=== PATIENT | male | born 1990 | race Caucasian/White ===

== ENCOUNTER 2020-06-09 12:53 | Emergency (ER) | payer OTHER, SELFPAY ==
--- NOTE | 2020-06-09 | ECG_ITS ---
Test Reason : CHEST DISCOMFORT Blood Pressure : / mmHG Vent. Rate : 058 BPM Atrial Rate : 058 BPM P-R Int : 138 ms QRS Dur : 072 ms QT Int : 434 ms P-R-T Axes : 057 027 039 degrees QTc Int : 426 ms Sinus bradycardia Otherwise normal ECG No previous ECGs available Referred By: Oliverio Arriaga Electronically Signed By:DORA WEBSTER
--- NOTE | 2020-06-09 12:23 | XR_ITS ---
EXAMINATION: XR CHEST CLINICAL INFORMATION: Chest pressure COMPARISON: None TECHNIQUE: 2 views of the chest were obtained. FINDINGS: The cardiac and mediastinal contours are normal. The lungs are clear. There is no pleural effusion or pneumothorax. There is curvature of the midthoracic spine to the right. IMPRESSION: No evidence for acute disease in the chest.
[2020-06-09 13:28] VITALS: BP 145/76; PULSE 55; RESP 14; TEMP 36.9; O2SAT 97; BMI 32.9
--- NOTE | 2020-06-09 13:43 | ED_ITS ---
HPI - Chest Pain General Chief Complaint: Chest Pain Stated Complaint: chest pain Time Seen by Provider: 06/09/20 13:40 Source: patient Mode of arrival: ambulatory Limitations: no limitations History of Present Illness HPI narrative: 29-year-old male with history of asthma who is a current most a smoker presenting today with complaint of left-sided chest wall pain that has been going on for the past 30 days or so. States he informed his primary care doctor, Dr. Segovia, about his symptoms and was evaluated had a EKG in office done yesterday that was normal and he had a scheduled chest x-ray that he had done today while he was in the Radiology Department he states he felt like he needed to get checked out more so he walked over after getting his x-ray done. States pain has been present and worse on the left side. Pain exacerbated by certain movements and alleviated by rest. MD complaint: chest pain Onset (ago): month(s) (1 months ) Prior episodes: Yes Pain location: left chest Pain radiation: none Severity: mild Quality: aching Relieving factors: rest Exacerbating factors: movement Treatment prior to arrival: other ( saw his primary care doctor who had EKG done and chest x-ray done outpatient today.) Risk Factors Coronary artery disease risk factors: none Thoracic aortic dissection risk factors: none Related Data Allergies Allergy/AdvReac Type Severity Reaction Status Date / Time No Known Allergies Allergy Verified 06/09/20 13:40 Review of Systems Review of Systems: Constitutional: No Weight loss, No Fever, No Chills, No Night Sweats, No Fatigue, No Malaise ENT/Mouth: No Hearing loss, No Ear Pain, No Nasal Congestion, No Sinus Pain, No Hoarseness, No sore throat, No Rhinorrhea, No Swallowing Difficulty Eyes: No Eye Pain, No Swelling, No Redness, No Foreign Body, No Discharge, No Vision Changes Cardiovascular: + Chest Pain, No SOB, No Dyspnea on Exertion, No Orthopnea, No Edema, No Palpitations Respiratory: No Cough, No Sputum, No Wheezing, No Smoke Exposure, No Dyspnea Gastrointestinal: No Nausea, No Vomiting, No Diarrhea, No Constipation, No abdominal Pain, No Hematochezia, No Melena Genitourinary: no irregular bleeding, No Dysuria, No Urinary Frequency, No Hematuria, No Urinary Incontinence, No Urgency, No Flank Pain, No Urinary Flow Changes, No Hesitancy Musculoskeletal: No joint pain, No Myalgias, No Joint Swelling Skin: No Skin Lesions, No rash Neuro: No Weakness, No Numbness, No Paresthesias, No Loss of Consciousness, No Dizziness, No Headache Psych: No Anxiety/Panic, No Depression, No SI/HI/AH/VH, No Social Issues, Heme/Lymph: No Bruising, No Bleeding,No Lymphadenopathy Endocrine: No Polyuria, No Polydipsia, No Temperature Intolerance [facility] Past Medical History Attestation statement: The following information was validated with the patient. Medical History (Updated 06/09/20 @ 16:20 by Oliverio Arriaga NP) Asthma Social History Social History Smoking Status: Never smoker Use of substances other than those prescribed or required for medical reasons: No Advance Directives: No Advance Directives Information Provided: No Physical Exam Vital Signs and I&O and Narrative: Vital Signs and I&O: Vital Signs Temp 98.5 F 06/09/20 13:28 Pulse 71 06/09/20 14:04 Resp 16 06/09/20 14:19 BP 127/75 06/09/20 14:04 Pulse Ox 97 06/09/20 13:28 Intake & Output 06/08/20 06/09/20 06/09/20 18:59 06:59 18:59 Weight 89.811 kg Body Mass Index 32.9 Const: General: cooperative and healthy appearing; No acute distress or intoxicated appearing Nutritional Appearance: average body habitus Orientation/consciousness: patient oriented x3 HENMT: Head: Yes normal to inspection Ears: hearing grossly normal bilaterally Eyes: General: appearance normal, both eyes and all related structures Visual Chaudhary: normal visual chaudhary by confrontation Neck: Neck: Yes normal visual inspection Thyroid: Thyroid normal Chest: Chest palpation & inspection: normal inspection of the chest and tenderness (left side Mild tender palpation / reproducable pain at the pectoralis) Resp: Effort & Inspection: normal respiratory effort Cardio: Jugular venous distension: no JVD GI: Inspection: Yes normal to inspection Percussion: Yes normal to percussion Auscultation: normal bowel sounds : General: Yes no CVA tenderness Back/Spine/Pelvis: Back: no CVA tenderness Skin: General skin exam: no rashes or lesions noted Neuro: General: patient oriented x3 Extrem: General: Yes normal to inspection Course Course Course Narrative: x-ray done outpatient just prior to arrival to ED from Radiology Department showed no acute disease. AP and exam consistent with pain in musculoskeletal in etiology patient does not have any risk factors but requesting further evaluation of this pain will go ahead and check labs including cardiac enzymes and EKG. No cardiac/ DVT/PE risk factors. Reevaluation(s) Reevaluation #1: states he has to leave cannot wait for troponin results. Labs otherwise reviewed including EKG and chest x-ray. Requesting a call at [phone] [facility] - Chest Pain MDM Narrative Medical decision making narrative: perc score negative, heart score 0. Differential Diagnosis Differential diagnosis: Likely atypical chest pain, costochondritis and chest pain; Unlikely fracture of rib, pneumothorax, stable angina, unstable angina pectoris, st elevation myocardial infarction and biliary colic Lab Data Attestation: I reviewed the patient's lab results. Result diagrams: 06/09/20 14:13 06/09/20 14:13 Labs: Lab Results 06/09/20 06/09/20 06/09/20 Range/Units 14:13 14:13 14:13 WBC 8.5 (4.8-10.8) X10*3/uL RBC 4.59 L (4.60-5.80) X10*6/uL Hgb 13.9 L (14.0-18.0) g/dl Hct 40.8 L (42-52) % MCV 88.9 (80-98) fL MCH 30.3 (27.0-33.0) pg MCHC 34.1 (31.0-36.0) g/dl RDW 12.6 (11.0-16.0) % Plt Count 301 (160-400) X10*3/uL MPV 8.3 L (9.4-12.4) fL Immature Gran % (Auto) 0.2 (0.0-0.4) % Neut % (Auto) 80.1 H (45-73) % Lymph % (Auto) 13.0 L (20-40) % [place] % (Auto) 5.3 (2-11) % Eos % (Auto) 0.8 (0-4) % Baso % (Auto) 0.6 (0-2) % Neut # (Auto) 6.8 (2.0-8.3) X10*3/uL Lymph # (Auto) 1.1 L (1.2-4.9) X10*3/uL [place] # (Auto) 0.5 (0.1-1.2) X10*3/uL Eos # (Auto) 0.1 (0.0-0.4) X10*3/uL Baso # (Auto) 0.1 (0.0-0.2) X10*3/uL Abs Immat Gran (auto) 0.02 (0.00-0.03) X10*3/uL Absolute Nucleated RBC 0.000 (0.0-0.012) X10*3/uL Nucleated RBC % (auto) 0.0 (0.0-0.2) /100WBC Sodium 138 (135-145) mmol/L Potassium 4.8 (3.3-5.1) mmol/l Chloride 103 (96-108) mmol/L Carbon Dioxide 27 (22-29) mmol/L Anion Gap 13 (12-20) BUN 11 (9-16) mg/dL Creatinine 0.97 (0.5-1.4) mg/dL Estim Creat Clear Calc 115.7 Estimated GFR > 60 Random Glucose 123 H (60-115) mg/dL Calcium 9.7 (8.4-10.2) mg/dL Total Bilirubin 0.5 (0.0-1.0) mg/dL Direct Bilirubin 0.2 (0.0-0.5) mg/dL AST 34 (5-37) U/L ALT 93 H (0-40) U/L Alkaline Phosphatase 70 (39-117) U/L Troponin I High Sens < 3.5 (<3.5-35.0) ng/L Total Protein 7.3 (6.5-8.0) g/dL Albumin 4.5 (3.5-5.0) g/dL Imaging Data Chest x-ray: Radiologist's impression: [address] [address] XRay Report Signed Patient: Alon Mei#: [id number] : 1990Acct:[id number] Age/Sex: 29 / MADM Date: 06/09/20 Loc: .ED Attending Dr: Lazarus Segovia MD Ordering Physician: DENYS SEGOVIA MD Date of Service: 06/09/20 Procedure(s): XR chest 2V Accession Number(s): [id number] cc: ~ EXAMINATION: XR CHEST CLINICAL INFORMATION: Chest pressure COMPARISON: None TECHNIQUE: 2 views of the chest were obtained. FINDINGS: The cardiac and mediastinal contours are normal. The lungs are clear. There is no pleural effusion or pneumothorax. There is curvature of the midthoracic spine to the right. IMPRESSION: No evidence for acute disease in the chest. Dictated By:KENDRICK RICE MD Signed By:<Electronically signed by KENDRICK RICE MD in OV>06/09/20 1304 DD/ 1223 TD/TT: Community Educator: CONNIE ECG Data ECG #1: ECG interpretation date: 06/09/20 Prior ECG tracings: not available for review Interpretation: sinus Greg, rate 58, no ST changes /elevation. Discharge Plan Discharge Clinical Impression: Costalchondritis Patient Disposition: Elopement Instructions: Costochondritis (ED) Referrals: Lazarus Segovia MD [Primary Care Provider] - 06/09/20 4:21 pm Discharge Date/Time: 06/09/20 16:04
[2020-06-09 14:04] VITALS: BP 127/75; PULSE 71; RESP 15
[2020-06-09 14:19] VITALS: RESP 16
[2020-06-09 14:22] LABS: MANUAL DIFF FLAG NO
[2020-06-09 14:27] LABS: Basophils Absolute Auto 0.1 X10*3/uL (0.0-0.2); Basophils Percent Auto 0.6 % (0-2); Eosinophils Absolute Auto 0.1 X10*3/uL (0.0-0.4); Eosinophils Percent Auto 0.8 % (0-4); Hematocrit 40.8 % (42-52); Hemoglobin 13.9 g/dl (14.0-18.0); Imm Gran Abs Auto 0.02 X10*3/uL (0.00-0.03); Imm Gran Pct Auto 0.2 % (0.0-0.4); Lymphocytes Absolute Auto 1.1 X10*3/uL (1.2-4.9); Mean Corpuscular HGB Conc 34.1 g/dl (31.0-36.0); Mean Corpuscular Hemoglobin 30.3 pg (27.0-33.0); Mean Corpuscular Volume 88.9 fL (80-98); Mean Platelet Volume 8.3 fL (9.4-12.4); Monocytes Absolute Auto 0.5 X10*3/uL (0.1-1.2); Monocytes Percent Auto 5.3 % (2-11); Neutrophils Absolute Auto 6.8 X10*3/uL (2.0-8.3); Neutrophils Percent Auto 80.1 % (45-73); Platelet Count 301 X10*3/uL (160-400); Red Blood Count 4.59 X10*6/uL (4.60-5.80); Red Cell Distribution Width 12.6 % (11.0-16.0); White Blood Count 8.5 X10*3/uL (4.8-10.8)
[2020-06-09 14:48] LABS: Alanine Aminotransferase 93 U/L (0-40); Albumin Level 4.5 g/dL (3.5-5.0); Alkaline Phosphatase 70 U/L (39-117); Anion Gap 13 (12-20); Aspartate Amino Transferase 34 U/L (5-37); Bilirubin Direct 0.2 mg/dL (0.0-0.5); Bilirubin Total 0.5 mg/dL (0.0-1.0); Blood Urea Nitrogen 11 mg/dL (9-16); Calcium 9.7 mg/dL (8.4-10.2); Carbon Dioxide 27 mmol/L (22-29); Chloride 103 mmol/L (96-108); Creatinine Clr Calc Pharmacy 115.7; Estimated Glomerular Filt Rate > 60; Glucose Random 123 mg/dL (60-115); Potassium 4.8 mmol/l (3.3-5.1); Sodium 138 mmol/L (135-145); Total Protein 7.3 g/dL (6.5-8.0)
[2020-06-09 16:06] LABS: Troponin-I High Sensitivity < 3.5 ng/L (<3.5-35.0)
== END 2020-06-09 16:04 | disposition home or self-care (01) ==
LOC: HO.ED 12:53
PROVIDERS: Nurse Practitioner Primary Care; Emergency Provider Emergency Medicine; PCP Internal Medicine; Visit Provider Internal Medicine
DX: M94.0 Chondrocostal junction syndrome [Tietze] (principal); J45.909 Unspecified asthma, uncomplicated; F17.200 Nicotine dependence, unspecified, uncomplicated
CPT/HCPCS: 36415; 71046; 80048; 80076; 84484; 85025; 93005; 93010; 99283; 99284

== ENCOUNTER → 2020-07-26 14:23 | Outpatient (BNVA) | payer OTHER, SELFPAY | PROVIDERS: PCP Internal Medicine; Visit Provider Internal Medicine | DX: R07.89 Other chest pain (principal); F17.210 Nicotine dependence, cigarettes, uncomplicated; F11.20 Opioid dependence, uncomplicated | CPT/HCPCS: 99202 ==

== ENCOUNTER 2023-01-09 15:15 | Outpatient (REF) | payer OTHER, SELFPAY ==
[2023-01-09 15:37] LABS: MANUAL DIFF FLAG NO
[2023-01-09 15:56] LABS: Basophils Absolute Auto 0.1 X10*3/uL (0.0-0.2); Basophils Percent Auto 0.5 % (0-2); Eosinophils Absolute Auto 0.2 X10*3/uL (0.0-0.4); Eosinophils Percent Auto 1.6 % (0-4); Hematocrit 42.2 % (42.0-52.0); Hemoglobin 14.3 g/dl (14.0-18.0); Imm Gran Abs Auto 0.04 X10*3/uL (0.00-0.03); Imm Gran Pct Auto 0.4 % (0.0-0.4); Lymphocytes Absolute Auto 2.9 X10*3/uL (1.2-4.9); Lymphocytes Percent Auto 26.8 % (20-40); Mean Corpuscular HGB Conc 33.9 g/dl (31.0-36.0); Mean Corpuscular Hemoglobin 30.6 pg (27.0-33.0); Mean Corpuscular Volume 90.2 fL (80.0-98.0); Mean Platelet Volume 8.9 fL (9.4-12.4); Monocytes Absolute Auto 0.8 X10*3/uL (0.1-1.2); Monocytes Percent Auto 7.8 % (2-11); Neutrophils Absolute Auto 6.8 x10*3/uL (2.0-8.3); Neutrophils Percent Auto 62.9 % (45-73); Platelet Count 330 X10*3/uL (160-400); Red Blood Count 4.68 X10*6/uL (4.60-5.80); Red Cell Distribution Width 12.9 % (11.0-16.0); White Blood Count 10.8 X10*3/uL (4.8-10.8)
[2023-01-09 16:08] LABS: Appearance Urine Cloudy; Color Urine Yellow; Glucose Urine UA Negative (Negative); Leukocyte Esterase Urine Negative (Negative); Nitrite Urine Negative (Negative); Specific Gravity - Urine >= 1.030 (1.005-1.025); Urine Blood Negative (Negative); Urine Ketones Negative (Negative); Urine Protein Trace mg/dL (Neg-Trace)
[2023-01-09 16:09] LABS: Estimated Average Glucose 114 mg/dL; Hemoglobin A1c % 5.6 %
[2023-01-09 16:44] LABS: Alanine Aminotransferase 112 U/L (0-40); Albumin Level 4.4 g/dL (3.5-5.0); Alkaline Phosphatase 71 U/L (39-117); Anion Gap 12 (12-20); Aspartate Amino Transferase 39 U/L (5-37); Bilirubin Total 0.4 mg/dL (0.0-1.0); Blood Urea Nitrogen 14 mg/dL (9-16); C Reactive Protein 0.84 mg/dL (< or = 0.50); Calcium 9.9 mg/dL (8.4-10.2); Carbon Dioxide 29 mmol/L (22-29); Chloride 105 mmol/L (96-108); Cholesterol 201 mg/dL; Estimated Glomerular Filt Rate > 60; Glucose Random 100 mg/dL (60-115); HDL Cholesterol 36 mg/dL; LDL Cholesterol Calculated 118 mg/dl; Potassium 4.3 mmol/L (3.3-5.1); Sodium 142 mmol/L (135-145); Total Protein 7.2 g/dL (6.5-8.0); Triglycerides 235 mg/dL
[2023-01-09 16:45] LABS: Creatinine Urine 268.17 mg/dL; Microalbum/Creatinine Ratio Ur 6.7 ug/mg cr
== END 2023-01-09 15:16 | disposition home or self-care (01) ==
LOC: HO.LAB 15:15
PROVIDERS: PCP Internal Medicine; Visit Provider Internal Medicine
DX: M54.2 Cervicalgia (principal); R07.9 Chest pain, unspecified; K21.9 Gastro-esophageal reflux disease without esophagitis; Z83.3 Family history of diabetes mellitus
CPT/HCPCS: 36415; 80053; 80061; 81003; 82043; 82550; 83036; 85025; 86140

== ENCOUNTER 2023-04-03 14:02 | Outpatient (AMB) | payer OTHER, SELFPAY ==
--- NOTE | 2023-04-03 14:05 | MHC.OFFVIS ---
Intake Vital Signs 04/03/23 14:06 Height 5 ft 5 in Weight 211 lb 10.3 oz BMI 35.2 BP 138/84 Blood Pressure Location Lt brachial Position Sitting Pulse 75 Pulse Source Pulse Oximeter Intake Visit Reasons: NPV/Croke/Chest pain Intake Note: New patient visit for evaluation of chest pain. Nut Cracker Required: No Accompanied by: Self / Same As Patient Allergies No Known Allergies Allergy (Verified 04/03/23 14:07) Medication List - Last Reconciled 04/03/23 by Agustín Ramos MD albuterol sulfate 90 mcg/actuation (ProAir HFA) 2 puffs inhalation Q6H PRN methadone 34 mg PO DAILY peak flow meter As directed quetiapine 100 mg PO BEDTIME HPI HPI Comments History of Present Illness Details Data was referred here for retrosternal chest discomfort. 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 Patient is a vague historian. He says since slightly before the COVID he had respiratory illness with lot of cough and mucus production and since then he has been getting inframammary discomfort radiating into the retrosternal area. Describes this as a tightness/occasionally sharp pain. Her disc comfort is almost constantly present. There is no clear relation to exertion. Symptoms then radiates up to the neck into the jaw and into the back of the neck. Symptoms are sometimes worse when he is raising his left shoulder. He has been worked up from pulmonary perspective and has been told that his lungs are clear. He is however currently on ProAir inhalers. He currently smokes and is trying to quit. Denies any other issues. [facility] Medical History Asthma Asthma Feeling of chest tightness Smoker Surgical History No pertinent past surgical history Family History Mother Drug overdoses Asthma Father Emphysema lung Social History Alcohol intake: current Alcohol intake frequency: holidays/special occasions only Cigarette Packs Per Day: 0.5 Cigarettes Per Day: 10 Years Smoked: 15 +/- Substance Use Type: Marijuana and Prescription Drugs Substance Use Frequency: Occasionally Review of Systems Const Denies weakness ENT Denies dizziness Card Denies chest pain, Denies chest pain with activity, Denies syncope, Denies rapid heart rate, Denies pedal edema, Denies edema, Denies leg edema, Denies lightheadedness, Denies palpitations, Denies dyspnea, Denies dyspnea on exertion and Denies orthopnea Resp Denies cough, Denies dyspnea and Denies dyspnea on exertion GI Denies hematochezia and Denies change in stool character Musc Denies abnormal gait, Denies muscle cramps, Denies muscle weakness, Denies numbness, Denies radiating pain into limb and Denies tingling Neuro Denies abnormal gait, Denies dizziness, Denies syncope, Denies numbness, Denies tingling and Denies weakness Endo Denies palpitations Physical Exam Vital Signs: Last Vital Signs Pulse 75 04/03/23 14:06 BP 138/84 04/03/23 14:06 BMI result Body Mass Index 35.2 Const General: cooperative, comfortable, no acute distress, alert, awake and Physically active Nutritional Appearance: obese Orientation/consciousness: patient oriented x3 Limitations: no limitations HEENT Head: Yes normocephalic and Yes atraumatic Neck Neck: Yes trachea midline, Yes supple and Yes no JVD Resp Effort & Inspection: normal respiratory effort Auscultation: clear to auscultation bilaterally Cardio Jugular venous distension: no JVD Palpation: normal PMI Rate: regular rate Rhythm: regular rhythm Heart sounds: S1 normal heart sound present, S2 normal heart sound present, no click, no gallops, no murmurs and no rubs GI Auscultation: normal bowel sounds Skin General skin exam: no rashes or lesions noted Neuro General: patient oriented x3 and no focal motor deficits Extrem General: Yes no clubbing, cyanosis or edema Office Procedures EKG Details: EKG today shows normal sinus rhythm normal EKG. [address]39-[id number], Complete Assessment & Plan Assessment & Plan (1) Feeling of chest tightness: Comment: NON SPECIFIC , MAY BE RELATED TO ANXIETY . BUT BRONCHIAL ASTHMA NEEDS TO BE RULED OUT . WILL ORDER A PEAK FLOW METER FOR HIM . ADVISED TO USE PROAIR 2 PUFFS , Q 6 HRS PRN PULM. FUNCTION TEST PRDERED . Code(s): R07.89 - Other chest pain Plan: Patient with persistent and recurrent retrosternal and precordial chest tightness which is almost constantly present and not exertion related. In fact he had chest pain today with EKG which was normal. At this time I would think likelihood of underlying coronary artery disease is low. Although he has risk factor of smoking. Suggest exercise treadmill stress test to assess for myocardial ischemia. If this is negative other sources of chest pain including GI and musculoskeletal should be pursued. He does have scoliosis of his spine and consider referral to spine. Will follow up in the clinic if need be. Thank you for allowing me to partake in his care Orders: Orders CA stress test Today R07.89 - Other chest pain Coding Level of Care Code New Pt Level 3 (00767) Diagnoses Feeling of chest tightness R07.89 CPT Codes EKG - CPT: 37464-[id number], Complete ([id number])
[2023-04-03 14:06] VITALS: BP 138/84; PULSE 75; BMI 35.2
== END 2023-04-03 14:27 | disposition home or self-care (01) ==
PROVIDERS: Visit Provider Internal Medicine Cardiovascular Disease
DX: R07.89 Other chest pain (principal)
CPT/HCPCS: 93010; 99203

== ENCOUNTER → 2023-04-03 14:02 | Outpatient (BNVA) | payer OTHER, SELFPAY | PROVIDERS: Visit Provider Internal Medicine Cardiovascular Disease | DX: R07.89 Other chest pain (principal); F12.20 Cannabis dependence, uncomplicated; Z72.0 Tobacco use; Z79.891 Long term (current) use of opiate analgesic | CPT/HCPCS: 93005; 99202 ==

== ENCOUNTER → 2023-05-15 10:14 | Outpatient (REF) | payer OTHER, SELFPAY ==
--- NOTE | 2023-05-15 10:19 | CA_ITS ---
Acquisition Time: 2023-05-15 10:43:14 Total Exercise Time: 00:09:57 Test Indications: CHEST PAIN Medications: ALBUTEROL METHADONE Protocol: JAE Max HR: 173 BPM 92% of Pred: 188 BPM Max BP: 190/068 mmHG Max Work Load: 11.5 METS Exercise stress test exercise 9 min 57 sec of Jae protocol achieving 92%, 1-2/10 chest pressure at baseline 3/10 mid chest pressure to throat with exercise, mild SOB, with PVcswith resting 140/88, and normotensive response to exercise, without EKG changes. Chest pain returned to baseline. Test reviewed with Dr. Gallegos. Referred By: Agustín Ramos Overread By: Mayelin Baxter
== END ==
LOC: HO.CARD 10:14
PROVIDERS: Visit Provider Internal Medicine Cardiovascular Disease
DX: R07.89 Other chest pain (principal)
CPT/HCPCS: 93017

== ENCOUNTER → 2023-05-15 10:19 | Outpatient (BNV) | payer OTHER, SELFPAY | PROVIDERS: Visit Provider Nurse Practitioner | DX: R07.89 Other chest pain (principal); R06.02 Shortness of breath | CPT/HCPCS: 93016; 93018 ==

== ENCOUNTER 2023-11-28 13:56 | Outpatient (REF) | payer OTHER, SELFPAY ==
--- NOTE | ~2023-11-28 | XR_ITS ---
EXAMINATION: XR ANKLE, LEFT CLINICAL INFORMATION: Pain after falling COMPARISON: None available. TECHNIQUE: AP, lateral, and mortise views of the left ankle. FINDINGS: Mortise intact. No fracture, dislocation or destructive process. XR/XR ankle LT min 3V IMPRESSION: Negative
[2023-11-28 14:07] LABS: MANUAL DIFF FLAG NO
[2023-11-28 14:22] LABS: Basophils Absolute Auto 0.1 X10*3/uL (0.0-0.2); Basophils Percent Auto 0.7 % (0-2); Eosinophils Absolute Auto 0.2 X10*3/uL (0.0-0.4); Eosinophils Percent Auto 2.6 % (0-4); Hematocrit 39.2 % (42.0-52.0); Hemoglobin 13.4 g/dl (14.0-18.0); Imm Gran Abs Auto 0.02 X10*3/uL (0.00-0.03); Imm Gran Pct Auto 0.2 % (0.0-0.4); Lymphocytes Absolute Auto 3.4 X10*3/uL (1.2-4.9); Mean Corpuscular HGB Conc 34.2 g/dl (31.0-36.0); Mean Corpuscular Volume 87.9 fL (80.0-98.0); Mean Platelet Volume 8.4 fL (9.4-12.4); Monocytes Absolute Auto 0.7 X10*3/uL (0.1-1.2); Monocytes Percent Auto 7.8 % (2-11); Neutrophils Absolute Auto 4.6 x10*3/uL (2.0-8.3); Neutrophils Percent Auto 50.7 % (45-73); Platelet Count 318 X10*3/uL (160-400); Red Blood Count 4.46 X10*6/uL (4.60-5.80)
[2023-11-28 15:00] LABS: Appearance Urine Clear; Color Urine Yellow; Glucose Urine UA Negative (Negative); Leukocyte Esterase Urine Negative (Negative); Nitrite Urine Negative (Negative); PH 5.5 (5.0-9.0); Specific Gravity - Urine 1.025 (1.005-1.025); Urine Blood Negative (Negative); Urine Ketones Negative (Negative); Urine Protein Negative (Neg-Trace)
[2023-11-28 15:02] LABS: Alanine Aminotransferase 66 U/L (0-40); Albumin Level 4.4 g/dL (3.5-5.0); Alkaline Phosphatase 78 U/L (39-117); Anion Gap 10 (12-20); Aspartate Amino Transferase 30 U/L (5-37); Bilirubin Total 0.4 mg/dL (0.0-1.0); Blood Urea Nitrogen 23 mg/dL (9-16); Calcium 9.8 mg/dL (8.4-10.2); Carbon Dioxide 31 mmol/L (22-29); Chloride 106 mmol/L (96-108); Estimated Glomerular Filt Rate > 60; Glucose Random 93 mg/dL (60-115); Potassium 4.1 mmol/L (3.3-5.1); Sodium 143 mmol/L (135-145); Total Protein 7.2 g/dL (6.5-8.0)
== END 2023-11-28 13:57 | disposition home or self-care (01) ==
LOC: HO.LAB 13:56
PROVIDERS: PCP Internal Medicine; Visit Provider Internal Medicine
DX: M25.572 Pain in left ankle and joints of left foot (principal); R79.89 Other specified abnormal findings of blood chemistry; M54.9 Dorsalgia, unspecified
CPT/HCPCS: 36415; 73610; 80053; 81003; 82550; 85025